=== PATIENT | female | born 1935 | race Caucasian/White ===

== ENCOUNTER 2018-08-14 10:21 | Inpatient (IN) ==
[2018-08-14] MEDS ORDERED: Clindamycin 900 MG/50 ML 900 MG/50 ML IV.SOLN IVPB ONE (10:53)
[2018-08-14] MEDS ORDERED: Ringers Solution, Lactated 1,000 ML IVC SCH ×3 (11:00→15:46)
--- NOTE | 2018-08-14 11:01 | History & Physical Report ---
Date of Encounter: 08/14/18 Time of Encounter: 11:00 24 Hour HP Update - Instructions Instructions: If the History and Physical is less than 30 days old and was completed prior to A.M. admission and or procedure and has NOT been updated on calendar day of procedure please complete this update prior to performing procedure. - Update Patient reports changes in Medical Condition: No Changes in examination, assessment, or condition: No Changes in Medication: No Preop tests/diagnostics Reviewed: Yes Surgery Remains Indicated: Yes Consent for Planned Operative Procedure(s) Verified: Yes - Pre-Operative Checklist Preoperative Checklist Indicated: No Prophylactic Antibiotic Ordered: Yes Is VTE Prophylaxis Indicated?: Yes
--- NOTE | 2018-08-14 11:01 | Anesthesia Evaluation PreOp ---
Date of Encounter: 08/14/18 Time of Encounter: 11:20 - Past History Planned Operation: Right Total Knee Arthroplasty Cardiac History: HTN Pulmonary History: Denies Any Significant HX WASTE MANAGEMENT SPECIALIST History: Denies Any Significant HX Other Medical History: Renal (stage 3 CKD) Anesthesia History: No Prior Anesthetic Complications, Past Anesthesia Alcohol Use: rarely Drug use: none Medications and Allergies Glucosamine Sulfate Dipot Chlr [Glucosamine] 1,500 mg PO DAILY 11/30/16 [History] Lisinopril [Zestril] 5 mg PO DAILY 11/30/16 [History] Loratadine [Allergy Relief] 10 mg PO DAILY 11/30/16 [History] Multivitamin [Multi-Day Vitamins] 1 each PO DAILY 11/30/16 [History] Calcium Carbonate/Vitamin D3 [Calcium 500-Vit D3 600 Tablet] 1 each PO DAILY 04/01/17 [History] Fluticasone Propionate Nasal [Flonase] 1 spr NS DAILY 04/01/17 [History] Melatonin 10 mg PO HS 04/01/17 [History] Metoprolol Succinate [Toprol Xl] 25 mg PO BID 08/14/18 [History] Montelukast [Singulair] 10 mg PO HS 08/14/18 [History] Allergy/AdvReac Type Severity Reaction Status Date / Time Penicillins Allergy Hives Verified 08/14/18 11:01 Sulfa (Sulfonamide Allergy Hives Verified 08/14/18 11:01 Antibiotics) - Meds/Allergy Pre-op Review Medications Reviewed: Yes Allergies Reviewed: Yes Beta Blockers on Current Med List: Yes If Beta Blockers taken, Date/Time (Last Dose taken): 08/14/2018 at 0700 Anesthesia Results - Labs Laboratory Tests 08/07/18 08/07/18 08/07/18 08:40 08:40 08:40 WBC 8.1 Hgb 12.4 Hct 38.2 Plt Count 300 PT 10.4 INR 0.9 APTT 30.4 Sodium 139 Potassium 4.0 BUN 22 Creatinine 1.08 - Imaging EKG: report reviewed (08/07/2018 SINUS RHYTHM) Anesthesia Exam O2 Sat Height 1.63 m Weight 60.781 kg O2 Sat by Pulse Oximetry 95 Vital Signs Temp Pulse Resp BP Pulse Ox 98.5 F 65 18 130/67 95 08/14/18 10:53 08/14/18 10:53 08/14/18 10:53 08/14/18 10:53 08/14/18 10:53 Height: 5'4'' Weight: 134 lbs NPO (# of Hours): 8 Pain Scale: 0 Pain Scale Used: Numeric (1 - 10) - HEENT Pupil (Motor): EOMI Mallampati: II Teeth: Normal Oral Opening: Greater than 3 - WASTE MANAGEMENT SPECIALIST LOC: Oriented WASTE MANAGEMENT SPECIALIST Motor: Normal RUE, Normal LUE, Normal RLE, Normal LLE, Normal Face WASTE MANAGEMENT SPECIALIST Sensory: Normal: RUE, LUE, LLE, Face, Deficit: RLE (numbness right foot post right ankle replacement) - Cardiac Rhythm: Regular Murmur: None - Pulmonary Breath Sounds: bilateral Clear Respiratory Effort: Symmetrical Anesthesia Assess/Plan ASA Score: 2 Level of consciousness: Cooperative, Oriented, Tranquil Anesthetic Plan: Spinal Regional Nerve Block Plan: Femoral, IPACK Monitoring Plan: Standard Monitors
[2018-08-14] MEDS ORDERED: Lidocaine -MPF 1% 5 ML AMPUL ONE (11:48)
[2018-08-14] MEDS ORDERED: Morphine Sulfate/PF 5mg/10mL Vial ONE (11:51)
[2018-08-14] MEDS ORDERED: Ethanol\\Acetic Acid\\Na Ace\\Ben 1,000 ML IRRIG.SOLN IR ONE (12:04)
[2018-08-14] MEDS ORDERED: ROPIVACAINE HCL/PF 0.5% 30 ML VIAL ONE (12:16)
[2018-08-14] MEDS ORDERED: Bupivacaine/Clonidine Syringe 1 EACH SYRINGE ONE (12:16)
--- NOTE | 2018-08-14 12:32 | Anesthesia Procedures ---
Date of Encounter: 08/14/18 Time of Encounter: 12:15 Procedures: Anesthesia - Epidural/Spinal Patient ID/Chart reviewed: Yes Patient examined: Yes Supplemental Oxygen: Nasal Cannula Supplemental Oxygen Rate (L/min): 2 Sedation: Versed (mg): 1 Sedation: Fentanyl (mcg): 50 Site Prep: Aseptic Technique, Sterile prep and drape, 0.5% Chlorhexidine/Alcohol Patient position: upright Local Anesthetic: Lidocaine 1% Spinal Needle Gauge: 22 Spinal Dose: 2 ml of 0.25% bupi. 150 mcg of duramorph Procedure: robotic total right knee Vitals + FHT's: Vital Signs/O2 Sat/Glucose, Most Recent Temp Pulse Resp BP Pulse Ox 98.5 F 65 18 139/69 94 08/14/18 11:08 08/14/18 12:04 08/14/18 12:04 08/14/18 12:04 08/14/18 12:04 - Nerve Block Procedure Date: 08/14/18 Time: 12:15 Checklist: Correct Patient Identifier, Correct procedure, History checked Correct side: Left Monitor Applied: EKG, BP, Pulse Oximetry Supplemental Oxygen via Nasal Cannula (L/min): 2 Sedation: Versed (mg): 1 Sedation: Fentanyl (mcg): 50 Indication: Post Op Analgesia Pre-op Neuro Deficits: No Block Type: Other (adductor canal and iPACK) Catheter placed: No Sterile Technique: Yes Ultrasound used: Yes Anatomy identified: Yes Visual spread of Local: Yes Blood on Needle Aspiration: No Smooth Injection of Local: Yes Pain with Injection of Local: No Prep: Chlorhexadine Local: 0.25% Bupivicaine w/Clonidine 20 mcg/cc (20 ml), Ropivacaine (0.5% with 8mg of decadron 30ml) Volume (cc): 50 toal Number of Attempts: 1 Complications: None/effective block Vitals: Vital Signs/O2 Sat, Most Current Temp Pulse Resp BP Pulse Ox 98.5 F 65 18 139/69 94 08/14/18 11:08 08/14/18 12:04 08/14/18 12:04 08/14/18 12:04 08/14/18 12:04
--- NOTE | 2018-08-14 13:55 | Orthopedic Operative Note ---
Date of procedure: 08/14/18 Pre-op diagnosis: Right knee arthritis Post-op diagnosis: same Procedure: Procedure: Right robotic-assisted Total knee replacement Estimated blood loss: 200 cc Hardware: Metal and polyethylene replacement. Garner Femur: 4 Tibia: 3 TS insert: 13 Patella: 36 Exam Under anesthesia: 1 degree flexion contracture 0 degree varus valgus as calculated by the robot full flexion and no instability Procedural Notes: Grade 4 arthritic changes all 3 compartments. Operative procedure: The patient was brought to the operating room and placed on the operating room table. After general anesthesia was administered the operative knee was examine d. Findings were noted in the exam under anesthesia. The operative extremity was prepped and draped in sterile surgical fashion. The patient received IV antibiotics prior to skin incision. A standard midline incision was made centered over the patella. The incision was made through the skin and subcutaneous tissue. A medial parapatellar tendon approach was performed. Care was taken to preserve tissue along the medial aspect of the patella. And to protect the patella tendon. The deep MCL was released off the medial tibia. The infra patella fat pad was excised. The patella was everted and cut was made at the level of the insertion of the quadriceps and patella tendon. The patella was sized the guide was seated and the lug holes are drilled. Knee was brought into flexion. Patient noted to have grade 4 arthritic changes all 3 compartments. Steinmann pins were placed in the tibia and the femur for the tibial and femoral arrays respectively. Checkpoints were also placed in the tibia and the femur for calculation purposes. The knee including the femur and the tibial registered. Osteophytes, ACL and PCL were excised at this point. Extension and flexion were assessed with a valgus stress components were adjusted on the computer to balance the knee. Femoral cuts were made first with robotic assistance, these included the anterior cut posterior cuts chamfer cuts. Tibial cut was then performed with robotic assistance as well. Bone fragments were removed, as well as the medial and lateral meniscus. The size 4 femoral guide was seated box cut was made lug holes are drilled. The size 3 tibial tray was seated and prepared with the fin cutter. Trial reduction with the 13 TS Rose revealed extension of 0 degree and 0 varus valgus full flexion. No varus valgus instability. Trial reduction revealed excellent patella tracking. All trial components were removed all bony surfaces were irrigated. The Tibia was seated followed by the femur, The selected Rose size was seated and secured patella. Patient had similar findings for motion and stability. The knee was closed by the PA. The knee was then irrigated out with 2 L of pulse irrigation. The extensor mechanism was closed with #2 FiberWire suture and #2 PDS suture. The subcutaneous tissue was then irrigated and closed deep with #1 PDS suture superficially with 0 PDS suture and skin was closed with zip tie The patient was then placed in a sterile dressing and a postoperative brace extubated and transferred to recovery room in stable condition. Anesthesia: spinal Surgeon: Wes Flores Was there an fast food assistant restaurant manager present: No Estimated blood loss (cc): 200 Condition: stable Disposition: PACU
[2018-08-14] MEDS ORDERED: *HR* OxyCODONE Immed Rel 5 MG TABLET PO PRN ×2 (14:03→15:46)
[2018-08-14] MEDS ORDERED: *HR* Morphine 2 MG/ML SYRINGE IVP PRN (14:03)
[2018-08-14] MEDS ORDERED: Ondansetron 4 MG/2 ML VIAL IVP ONE (14:03)
[2018-08-14] MEDS ORDERED: *HR* Labetalol 20 MG/4 ML SYRINGE IVP PRN (14:03)
--- NOTE | 2018-08-14 14:14 | Discharge Summary ---
<Radha Villela L - Last Filed: 08/14/18 14:12> Orders not resulted at time of discharge: Pending orders 08/14/18 08:13 XR knee RT 1-2V [XR] Routine H/H [Hemoglobin and Hematocrit] [HEME] Routine 08/14/18 11:52 US anesthesia pain block [US] Routine 08/14/18 13:56 Surgical Pathology [PTH] Routine Date of Encounter: 08/14/18 - Discharge Diagnosis (1) Status post total knee replacement, right Priority: Primary Status: Acute Comments: Opsite dressing, leave intact until first post-operative visit. If dressing becomes >50% saturated, contact office, remove dressing and place appropriate dressing in its place. Do not allow for dressing to get wet. Zipline/[place] in place, plan to remove at post-operative day #14-16. Total Joint Precautions x 6 weeks Apply cold therapy wrap 3-6x/day for 20 minutes at a time. Encourage ambulation throughout the day Use Incentive spirometer 10x/hour. Elevate affected extremity above heart as tolerated. Brace: Wear knee immobilizer at night until first post-operative appt. (2) Arthritis of knee, right Priority: Primary Status: Acute (3) HTN (hypertension) Priority: Secondary Status: Acute Qualifiers: Hypertension type: essential hypertension Qualified Code(s): I10 - Essential (primary) hypertension (4) History of DVT (deep vein thrombosis) Priority: Secondary Status: Chronic - Hospital Course Hospital course: Ms. Bernstein is a 83 year old female - Time Spent with Patient Total time spent providing and/or coordinating discharge services: - Discharge Medications Home Medications: Glucosamine Sulfate Dipot Chlr [Glucosamine] 1,500 mg PO DAILY 11/30/16 [History] Lisinopril [Zestril] 5 mg PO DAILY 11/30/16 [History] Loratadine [Allergy Relief] 10 mg PO DAILY 11/30/16 [History] Multivitamin [Multi-Day Vitamins] 1 each PO DAILY 11/30/16 [History] Calcium Carbonate/Vitamin D3 [Calcium 500-Vit D3 600 Tablet] 1 each PO DAILY 04/01/17 [History] Fluticasone Propionate Nasal [Flonase] 1 spr NS DAILY 04/01/17 [History] Melatonin 10 mg PO HS 04/01/17 [History] Aspirin Enteric Coated [Aspirin EC] 325 mg PO BID #20 tablet. 08/14/18 [Rx] Metoprolol Succinate [Toprol Xl] 25 mg PO BID 08/14/18 [History] Montelukast [Singulair] 10 mg PO HS 08/14/18 [History] OxyCODONE Immed Rel [Roxicodone 5 MG] 5 mg PO Q6HR PRN 7 Days #28 tablet 08/14/18 [Rx] Allergies/Adverse Reactions: Allergy/AdvReac Type Severity Reaction Status Date / Time Penicillins Allergy Hives Verified 08/14/18 11:01 Sulfa (Sulfonamide Allergy Hives Verified 08/14/18 11:01 Antibiotics) Primary care physician: Ann Thrasher CNP - Patient Status Disposition: Home, Self-Care Condition: Good - Discharge Instructions Instructions: Total Knee Replacement (DC), Precautions after Total Joint Replacement Surgery (DC) Follow Up With: Wes Flores MD [Partnered Physician] - Radha Villela PAC [Physician Call Out Clerk] - Ann Thrasher CNP [Primary Care Provider] - Jeremiah Sandoval DO [Partnered Physician] - <Juli Hutchins - Last Filed: 08/15/18 21:57> Orders not resulted at time of discharge: Pending orders 08/14/18 11:52 US anesthesia pain block [US] Routine 08/14/18 13:56 Surgical Pathology [PTH] Routine Date of Encounter: 08/15/18 Time of Encounter: 12:50 - Discharge Diagnosis (1) Status post total knee replacement, right Priority: Primary Status: Acute (2) Arthritis of knee, right Priority: Primary Status: Acute (3) HTN (hypertension) Priority: Secondary Status: Acute Qualifiers: Hypertension type: essential hypertension Qualified Code(s): I10 - Essential (primary) hypertension (4) History of DVT (deep vein thrombosis) Priority: Secondary Status: Chronic - Hospital Course Hospital course: Ms. Bernstein is a 83 year old female status post right TKR robotic 08/14/18 with a h istory ofHTN and history of DVT. Patient had episodes of lower O2 with lowest reading 90%. She was encouraged multiple times to use IS and did improve to 97% before discharge after working with nurse on IS. Temp max was 99.8 but did normalize to 98.3 after using IS. No cough, SOB or chest pain. Nursing did document reviewing updated vitals with Dr. Flores who stated patient was stable for discharge. Patient seen at bedside, without complaints. A&O x 3 Afebrile, vital signs stable at time of exam. Labs reviewed. H/H 10.2/31.1- stable, asymptomatic Pain control: adequate Participating in PT. All questions and concerns addressed. Educated on use of incentive spirometer multiple times. Encouraged ambulation and proper hydration. Patient educated on post-operative restrictions and post-operative care. Assessment and plan: Continue with postoperative care Discharge plan: Home with outpatient therapy, discharge today. - Time Spent with Patient Total time spent providing and/or coordinating discharge services: Date of admission: 08/14/18 15:45 Primary care physician: Ann Thrasher CNP Consults: 08/14/18 15:46 Consult to Occupational Therapy [CONS] Routine Comment: Evaluate, develop and implement POC Reason for Consult: post knee surgery Does patient have active BEDREST order?: No Is patient medically & hemodynamically stable?: Yes Consult to Orthopedic Navigator [CONS] [CONS] Routine Consult to Physical Therapy [CONS] Routine Comment: Evaluate, develop and impliment POC Reason for Consult: post knee surgery Does patient have active BEDREST order?: No Is patient medically & hemodynamically stable?: Yes Consult to Content Creation Manager [CONS] Routine Reason for SW Consult: post op joint replacement RT Post Op Consult [CONS] Routine Discharging clinician: Wes Flores Anticipated date of discharge: 08/15/18 Labs on day of discharge: Labs from last 24 hours 08/15/18 08/15/18 05:16 05:16 Hgb 10.2 L Hct 31.1 L Sodium 137 Potassium 4.2 Chloride 104 Carbon Dioxide 24 BUN 21 Creatinine 0.69 Est GFR ( Amer) > 60 Est GFR (Non-Af Amer) > 60 BUN/Creatinine Ratio 30 H Glucose 116 H Calculated Osmolality 288 Calcium 9.4 - Impressions ITS Impressions Knee X-Ray 08/14/18 08:13 IMPRESSION: Unremarkable knee post arthroplasty. D/ / Edgardo Carrero MD / Edgardo Carrero MD Interpreting Provider: Edgardo Carrero MD - Patient Status Functional capacity at discharge: uses cane/walker Overall status at discharge: patient is back to baseline - Diet and Activity Activity: as per physical therapy Diet: advance to your usual diet
--- NOTE | 2018-08-14 14:46 | Anesthesia Evaluation Post Op ---
Date of Encounter: 08/14/18 Time of Encounter: 14:44 - Vital Signs Vital Signs: Vital Signs/O2 Sat, Most Current Temp Pulse Resp BP Pulse Ox 98.1 F 59 14 120/61 94 08/14/18 14:23 08/14/18 14:33 08/14/18 14:33 08/14/18 14:33 08/14/18 14:33 - Lungs Lungs: Clear Ascult./Percussion - Airway Airway: Non-obstructed - Cardiovascular Regular Rate - Mental Status Mental Status: Alert & Oriented, Answers Appropriately - Pain Pain Scale: 0 Pain Scale used: Numeric (1 - 10) - Nausea Vomiting Nausea Vomiting: Not Present - Hydration Hydration: NPO, Has not voided - Discharge PostOp Status: Transfer Patient to floor
[2018-08-14 15:08] LABS: Hemoglobin 11.4 g/dL (11.5-15.4)
[2018-08-14] MEDS ORDERED: Sennosides 8.6 MG TABLET PO PRN (15:46)
[2018-08-14] MEDS ORDERED: Temazepam 15 MG CAPSULE PO PRN (15:46)
[2018-08-14] MEDS ORDERED: *HR* OxyCODONE/APAP 5/325 TABLET PO PRN (15:46)
[2018-08-14] MEDS ORDERED: traMADol 50 MG TABLET PO PRN (15:46)
[2018-08-14] MEDS ORDERED: MOM Conc 10 ML UD.LIQ PO PRN (15:46)
[2018-08-14] MEDS ORDERED: Naloxone 0.4 MG/ML INJ IVP PRN (15:46)
[2018-08-14] MEDS ORDERED: Ondansetron 4 MG/2 ML VIAL IVP PRN (15:46)
[2018-08-14] MEDS: Clindamycin 900 MG/50 ML 900 MG/50 ML IV.SOLN IVPB SCH (16:53)
[2018-08-14] MEDS ORDERED: Melatonin 3 MG TABLET PO SCH (21:00)
[2018-08-14] MEDS: Metoprolol XL (24 HR) Succ 25 MG TAB.ER.24H PO SCH (21:08)
[2018-08-15] MEDS: Clindamycin 900 MG/50 ML 900 MG/50 ML IV.SOLN IVPB SCH (00:57)
[2018-08-15 05:49] LABS: Hematocrit 31.1 % (35.3-44.9); Hemoglobin 10.2 g/dL (11.5-15.4)
[2018-08-15 06:09] LABS: BUN/Creatinine Ratio 30 (6-26); Blood Urea Nitrogen 21 mg/dL (8-23); Calcium 9.4 mg/dL (8.6-10.3); Carbon Dioxide 24 mEq/L (23-29); Chloride 104 mEq/L (98-107); Glucose 116 mg/dL (70-105); Osmolality,Calculated 288 (280-300); Potassium 4.2 mEq/L (3.5-5.1); Sodium 137 mEq/L (136-145); eGFR For Non-African Americans > 60 (> 60)
--- NOTE | 2018-08-15 06:53 | Orthopedics Progress Note ---
Date of Encounter: 08/15/18 Time of Encounter: 06:53 Subjective Interval history: Patient was seen this morning doing well without complaints. Afebrile vital signs stable. Operative extremity: Neurovascularly intact Dressing clean dry and intact Calves nontender Assessment and plan: Continue with postoperative care Hematocrit 31 Objective Vital signs: Vital Signs Temp Pulse Resp BP Pulse Ox 08/15/18 04:26 98.7 F 64 18 104/51 94 08/15/18 00:10 98.0 F 65 14 101/57 93 08/14/18 19:48 97.6 F 68 16 129/66 94 08/14/18 15:30 97.3 F L 81 16 168/68 90 08/14/18 14:52 97.8 F 59 14 124/71 95 08/14/18 14:43 62 14 129/65 95 08/14/18 14:33 59 14 120/61 94 08/14/18 14:23 98.1 F 60 14 121/68 95 08/14/18 12:50 62 18 113/55 99 08/14/18 12:04 65 18 139/69 94 08/14/18 11:08 98.5 F 65 18 130/67 95 08/14/18 10:53 98.5 F 65 18 130/67 95 Intake and Output 08/14/18 08/14/18 08/15/18 15:59 23:59 07:59 Intake Total 50 / 50 430 / 430 0 / 0 Output Total 200 / 200 750 / 750 100 / 100 Balance -150 / -150 -320 / -320 -100 / -100 Intake: IV Fluids 50 / 50 50 / 50 Cleocin Premix 900 MG/50 ML 900 50 / 50 mg In 50 ml @ 100 mls/hr IVPB PREOP ONE Rx#:[id number] Oral 380 / 380 0 / 0 Output: Urine 300 / 300 100 / 100 Emesis 450 / 450 Estimated Blood Loss 200 / 200 Other: Weight 60.781 kg 60.28 kg Patient Weight 08/15/18 23:59 Weight 60.28 kg - Labs CBC & BMP: 08/15/18 05:16 08/15/18 05:16 Labs: Abnormal lab results Hgb 10.2 g/dL (11.5-15.4) L 08/15/18 05:16 Hct 31.1 % (35.3-44.9) L 08/15/18 05:16 BUN/Creatinine Ratio 30 (6-26) H 08/15/18 05:16 Glucose 116 mg/dL (70-105) H 08/15/18 05:16 Consult Discharge Plan - Plan Referrals: Ann Thrasher, [employer] [Primary Care Provider] -
[2018-08-15] MEDS ORDERED: Multivit/Ca/Min/Fe/FA 1 TAB TABLET PO SCH (09:00)
[2018-08-15] MEDS ORDERED: Fluticasone Propionate Nasal 50 MCG/SPRAY BOTTLE NS SCH (09:00)
[2018-08-15] MEDS ORDERED: Aspirin Enteric Coated 81 MG Tablet PO SCH ×3 (09:00)
[2018-08-15] MEDS ORDERED: GLUCOSAMINE SULFATE 1500 MG PO SCH (09:00)
[2018-08-15] MEDS ORDERED: Loratadine 10 MG TABLET PO SCH (09:00)
[2018-08-15] MEDS: Metoprolol XL (24 HR) Succ 25 MG TAB.ER.24H PO SCH (09:22)
[2018-08-15 17:02] VITALS: BP 131/58
== END 2018-08-15 17:42 | disposition home or self-care (01) | DRG 470 ==
LOC: SAMDAY 10:21 → 3NENU 15:45
PROVIDERS: ADMIT Orthopaedic Surgery; ATTEND Orthopaedic Surgery